=== PATIENT | female | born 1960 | race Caucasian/White ===

== ENCOUNTER 2020-08-15 09:27 | Day surgery (SDC) | payer OTHER ==
[~2020-08-15] VITALS: Ht 165.1 cm; Wt 73.2 kg
[~2020-08-15 09:27] MED LIST: ALBU90OI; ATEN25 PO; ATOR40TA PO; CYCL10 PO; ESTRADIOL0.5 MG PO; HYDCHL25 PO; LOPE2C PO; MELO7.5 PO; MOTION RELIEF25 MG PO; OMEP20ER PO; POTA10T PO
== END 2020-08-15 12:12 | disposition home or self-care (01) ==
LOC: ORSCSDS 09:27
PROVIDERS: Student in an Organized Health Care Education/Training Program
PROC: 0DB58ZX Excision of Esophagus, Via Natural or Artificial Opening Endoscopic, Diagnostic (ICD-10-PCS; principal; 2020-08-15 10:45)
DX: K22.70 Barrett's esophagus without dysplasia (principal); K44.9 Diaphragmatic hernia without obstruction or gangrene; I10 Essential (primary) hypertension; E78.5 Hyperlipidemia, unspecified; F41.9 Anxiety disorder, unspecified; J44.9 Chronic obstructive pulmonary disease, unspecified; Z87.891 Personal history of nicotine dependence
CPT/HCPCS: 88305; J2704; J7120

== ENCOUNTER → 2020-10-13 | Outpatient (CLI) | payer OTHER | LOC: LAB SHORT 19:30 → LAB 19:30 | PROVIDERS: Family Medicine | DX: Z79.899 Other long term (current) drug therapy (principal); Z88.8 Allergy status to other drugs, medicaments and biological substances | CPT/HCPCS: G0480 ==

== ENCOUNTER 2021-04-14 15:05 | Inpatient (IN) | payer OTHER ==
[~2021-04-14] VITALS: Ht 165.1 cm; Wt 72.6 kg
[~2021-04-14 15:05] MED LIST changes: -ALBU90OI; +PROAIR RESPICL90 MCG INH
[2021-04-14 15:44] LABS: BASOPHILS ABSOLUTE AUTO 0.05 K/mm3 (0.00-0.23); BASOPHILS PERCENT AUTO 0 % (0-2); EOSINOPHILS ABSOLUTE AUTO 0.12 K/mm3 (0.00-0.68); EOSINOPHILS PERCENT AUTO 1 % (0-6); Hematocrit 41.3 % (33.0-51.0); Hemoglobin 13.7 g/dL (11.5-16.0); IMMATURE GRAN ABSOLUTE AUTO 0.07 K/mm3 (0.00-0.10); IMMATURE GRAN PERCENT AUTO 0 % (0-1); LYMPHOCYTES ABSOLUTE AUTO 2.34 K/mm3 (0.84-5.20); LYMPHOCYTES PERCENT AUTO 14 % (21-46); MONOCYTES PERCENT AUTO 5 % (4-13); Mean Corpuscular HGB 29.4 pg (26.0-34.0); Mean Corpuscular HGB Conc 33.2 g/dL (31.5-36.5); Mean Corpuscular Volume 89 fL (80-100); Mean Platelet Volume 9.4 fL (9.1-12.4); NEUTROPHILS ABSOLUTE AUTO 13.02 K/mm3 (1.96-9.15); NEUTROPHILS PERCENT AUTO 79 % (41-73); Platelet Count 277 K/mm3 (150-400); RDW Coefficient Variation 12.4 % (11.7-14.2); RDW Standard Deviation 40.3 fL (35.1-46.3); Red Blood Cell Count 4.66 M/mm3 (3.80-5.20)
[2021-04-14 16:02] LABS: Alanine Aminotransfer (ALT/SGP 22 U/L (12-78); Albumin, Blood 4.2 g/dL (3.4-5.0); Albumin/Globulin Ratio 1.2 (0.8-1.8); Alk Phos 67 U/L (50-136); Anion Gap 11 mmol/L (6-16); Aspartate Aminotrans (AST/SGOT 20 U/L (12-37); Bilirubin, Total 0.6 mg/dL (0.1-1.0); Blood Urea Nitrogen 16 mg/dL (8-24); Bun/Creatinine Ratio 29.5 (12.0-20.0); CO2, Blood 27 mmol/L (21-32); Chloride, Blood 102 mmol/L (98-108); Creatinine, Blood 0.54 mg/dL (0.40-1.00); Globulin, Blood 3.4 g/dL (2.2-4.0); Glomerular Filtration Rate >60 (60-); Glucose, Blood 100 mg/dL (70-99); Potassium, Blood 3.1 mmol/L (3.5-5.5); Sodium, Blood 140 mmol/L (136-145); Total Protein, Blood 7.6 g/dL (6.4-8.2)
[2021-04-14] MEDS ORDERED: PANT20 PO (16:05)
[2021-04-14] MEDS ORDERED: HYDROCODONE-AC1 EA10 PO (16:14)
[2021-04-14] MEDS ORDERED: LYRICA PO (16:15)
[2021-04-14] MEDS ORDERED: FLOVENT HFA12 GM INH (16:15)
[2021-04-14] MEDS ORDERED: TIZA4 PO (16:16)
[2021-04-14 17:57] LABS: Source, Urine Clean Catch
[2021-04-14 17:59] LABS: Bilirubin, Urine Neg (Neg); Blood, Urine Neg (Neg); Glucose Qualitative, Urine Neg (Neg); Ketones, Urine 2+ (Neg); Leukocyte Esterase, Urine Neg (Neg); Nitrite, Urine Neg (Neg); Protein, Urine Neg (Neg); Specific Gravity, Urine 1.005 (1.003-1.022); Urobilinogen, Urine NORM (Normal)
[2021-04-14 18:10] LABS: Appearance, Urine Clear (Clear); Color, Urine Pale Yellow (P-Yellow)
--- NOTE | 2021-04-15 04:13 | NUR ---
Pt is alert and oriented x4. ambulatory with standby assist to the restroom. skin intact. pt is complaining of abdominal pain 12/31. Dilaudid q4 did not work. Messaged physician about pain. new order for fentanyl 25-50 mg q4 prn and changed the dilaudid to q2 prn. patient tolerated fentanyl well and states "it is working better than the other medications." pt is now resting on bed in lowest position. call light within reach. pt complains of burning on IV site when potassium IV is running. placed iced pack on site and patient state it helps. no tele ordered when RN called for tele order for running potassium IV.
[2021-04-15 05:00] LABS: BASOPHILS ABSOLUTE AUTO 0.03 K/mm3 (0.00-0.23); BASOPHILS PERCENT AUTO 0 % (0-2); EOSINOPHILS PERCENT AUTO 0 % (0-6); Hematocrit 36.4 % (33.0-51.0); Hemoglobin 12.2 g/dL (11.5-16.0); IMMATURE GRAN ABSOLUTE AUTO 0.04 K/mm3 (0.00-0.10); IMMATURE GRAN PERCENT AUTO 0 % (0-1); LYMPHOCYTES ABSOLUTE AUTO 0.79 K/mm3 (0.84-5.20); LYMPHOCYTES PERCENT AUTO 7 % (21-46); MONOCYTES ABSOLUTE AUTO 0.38 K/mm3 (0.16-1.47); MONOCYTES PERCENT AUTO 3 % (4-13); Mean Corpuscular HGB 29.7 pg (26.0-34.0); Mean Corpuscular HGB Conc 33.5 g/dL (31.5-36.5); Mean Corpuscular Volume 89 fL (80-100); Mean Platelet Volume 9.4 fL (9.1-12.4); NEUTROPHILS ABSOLUTE AUTO 10.69 K/mm3 (1.96-9.15); NEUTROPHILS PERCENT AUTO 90 % (41-73); Platelet Count 221 K/mm3 (150-400); RDW Coefficient Variation 12.7 % (11.7-14.2); RDW Standard Deviation 41.7 fL (35.1-46.3); Red Blood Cell Count 4.11 M/mm3 (3.80-5.20); White Blood Cell Count 11.93 K/mm3 (4.00-11.30)
[2021-04-15 05:19] LABS: International Normalized Ratio 1.07; Prothrombin Time Results 11.2 Sec (9.7-11.5)
[2021-04-15 05:20] LABS: Alanine Aminotransfer (ALT/SGP 17 U/L (12-78); Albumin, Blood 3.6 g/dL (3.4-5.0); Albumin/Globulin Ratio 1.2 (0.8-1.8); Alk Phos 49 U/L (50-136); Anion Gap 9 mmol/L (6-16); Aspartate Aminotrans (AST/SGOT 15 U/L (12-37); Blood Urea Nitrogen 11 mg/dL (8-24); Bun/Creatinine Ratio 17.2 (12.0-20.0); CO2, Blood 26 mmol/L (21-32); Calcium, Blood 8.4 mg/dL (8.5-10.1); Chloride, Blood 105 mmol/L (98-108); Creatinine, Blood 0.64 mg/dL (0.40-1.00); Glomerular Filtration Rate >60 (60-); Glucose, Blood 141 mg/dL (70-99); Magnesium, Blood 1.3 mg/dL (1.6-2.4); Potassium, Blood 3.2 mmol/L (3.5-5.5); Sodium, Blood 140 mmol/L (136-145); Total Protein, Blood 6.6 g/dL (6.4-8.2)
--- NOTE | 2021-04-15 08:00 | NUR ---
pt laying in bed in distress, complaining of abd pain, she has a k pad in place, reports her right leg is also hurting from her back, 1mg dilaudid given with small amount of relief, lungs are clear on r/a, resp even and unlabored, hrr, no edema noted, ppp+2, cap refill <3sec, vs stable, afebrile, iv to rac, site is clear and patent, btx4, abd flat soft but very tender, voids without diff, skin c/w/d, karen, cecy, had a small bm this am per pt. call light in reach.
--- NOTE | 2021-04-15 17:22 | NUR ---
IV TO RAC IS LEAKING WITH FLUSH, THIS WAS REMOVED INTACT, NEW 20G PLACED TO RFA, GOOD BLOOD RETURN, 20 PLACED TO LFA PLACED THIS AM BY VP DIRECTOR OF FINANCE. INFUSING LR AT 150 PER ORDERS, PT JUST RECIEVED TORADAL FOR PAIN, CALL LIGHT IN REACH.
--- NOTE | 2021-04-15 18:24 | NUR ---
Pt doing better this afternoon. toridal seems to be helping. no further changes this shift. call light in reach.
[2021-04-16 04:44] LABS: BASOPHILS ABSOLUTE AUTO 0.02 K/mm3 (0.00-0.23); BASOPHILS PERCENT AUTO 0 % (0-2); EOSINOPHILS ABSOLUTE AUTO 0.06 K/mm3 (0.00-0.68); EOSINOPHILS PERCENT AUTO 1 % (0-6); Hematocrit 33.3 % (33.0-51.0); Hemoglobin 10.5 g/dL (11.5-16.0); IMMATURE GRAN ABSOLUTE AUTO 0.03 K/mm3 (0.00-0.10); IMMATURE GRAN PERCENT AUTO 0 % (0-1); LYMPHOCYTES ABSOLUTE AUTO 1.29 K/mm3 (0.84-5.20); LYMPHOCYTES PERCENT AUTO 16 % (21-46); MONOCYTES ABSOLUTE AUTO 0.26 K/mm3 (0.16-1.47); MONOCYTES PERCENT AUTO 3 % (4-13); Mean Corpuscular HGB 29.5 pg (26.0-34.0); Mean Corpuscular HGB Conc 31.5 g/dL (31.5-36.5); Mean Platelet Volume 9.6 fL (9.1-12.4); NEUTROPHILS ABSOLUTE AUTO 6.23 K/mm3 (1.96-9.15); NEUTROPHILS PERCENT AUTO 79 % (41-73); Platelet Count 183 K/mm3 (150-400); RDW Coefficient Variation 12.8 % (11.7-14.2); RDW Standard Deviation 44.2 fL (35.1-46.3); Red Blood Cell Count 3.56 M/mm3 (3.80-5.20); White Blood Cell Count 7.89 K/mm3 (4.00-11.30)
[2021-04-16 04:48] LABS: Mean Corpuscular Volume 94 fL (80-100)
[2021-04-16 05:22] LABS: Alanine Aminotransfer (ALT/SGP 15 U/L (12-78); Alk Phos 51 U/L (50-136); Anion Gap 10 mmol/L (6-16); Aspartate Aminotrans (AST/SGOT 14 U/L (12-37); Bilirubin, Total 1.2 mg/dL (0.1-1.0); Blood Urea Nitrogen 13 mg/dL (8-24); Bun/Creatinine Ratio 24.1 (12.0-20.0); CO2, Blood 24 mmol/L (21-32); Calcium, Blood 8.1 mg/dL (8.5-10.1); Chloride, Blood 108 mmol/L (98-108); Creatinine, Blood 0.54 mg/dL (0.40-1.00); Glomerular Filtration Rate >60 (60-); Glucose, Blood 92 mg/dL (70-99); Magnesium, Blood 1.9 mg/dL (1.6-2.4); Phosphorus, Blood 2.1 mg/dL (2.5-4.9); Potassium, Blood 3.1 mmol/L (3.5-5.5); Sodium, Blood 142 mmol/L (136-145)
--- NOTE | 2021-04-16 19:09 | NUR ---
PATIENT IS ALERT AND ORIENTED AND COOPERATIVE WITH CARE. C/O ABDOMINAL PAIN, MANAGED PER EMAR. ABDOMEN IS TENDER TO TOUCH AND SOFT. PATIENT STATES HER ABDOMEN IS MORE DISTENDED THAN NORMAL. PATIENT HAS BEEN NPO. GENERAL SURGERY DID NOT SEE THE PATIENT THIS SHIFT. PATIENT RESTED IN BED ON HER SIDE MOST OF THE SHIFT. WILL CONTINUE TO MONITOR
--- NOTE | 2021-04-17 02:13 | NUR ---
Patient stated feeling much better today. Still having mild abdominal pain manage with medication per eMar. Patient is on 2 L N/C Humidified. She ambulate to the restroom. Infusion/Peripheral IV continue @ 100ml/HR. No new complaint. We continue with monitoring patient.
--- NOTE | 2021-04-17 13:34 | NUR ---
Initial Assessment with [facility] Community Traffic Law Attorney 1. Who did you speak with? Spoke with patient 2. What is the patient's prior level of functions? Patient lives independently in a home with her boyfriend Denis Parham. Residence is single story with four to five stairs at entrance. Patient able to perform ADLs without assistance. Her home has running water, heat, electricity, and sewage. 3. What is the patient's current living situation? Patient lives with boyfriend. 4. Is the patient and/or family able to provide transportation to and from doctor's appointments and pickle sorter prescriptions? Patient able to drive and has transportation. 5. Does patient still drive? Yes 6. POA/PCP/NOK: NOK: Nico Diez daughter [phone]/[facility] PCP Dr Daphney Wilson 7. ANTICIPATED DISCHARGE NEEDS/GOALS: TBD -Patient able to manage medication -Preferred Pharmacy [facility] 8. List barriers to discharge: No barriers on this date 9. Discharge Plan: Home and follow up with [place] PCP Dr. Wilson 10. PCP Follow up appointment: Will be scheduled within seven calendar days of discharge. 11. OTHER COMMENTS: Patient is not a
--- NOTE | 2021-04-17 17:49 | NUR ---
SHIFT SUMMARY PT HAS BEEN UPBEAT & PLEASANT TODAY. UP IND IN ROOM & MOVING AROUND WELL. TOLERATING FEW ICE CHIPS WELL. ONLY BECAME NAUSEATED x 1 THIS AM. PAIN HAS CAME & GONE; REPORTS RELIEF FROM PAIN MEDS.
[2021-04-18 04:47] LABS: BASOPHILS ABSOLUTE AUTO 0.03 K/mm3 (0.00-0.23); BASOPHILS PERCENT AUTO 1 % (0-2); EOSINOPHILS ABSOLUTE AUTO 0.09 K/mm3 (0.00-0.68); EOSINOPHILS PERCENT AUTO 2 % (0-6); Hematocrit 32.2 % (33.0-51.0); Hemoglobin 10.3 g/dL (11.5-16.0); IMMATURE GRAN ABSOLUTE AUTO 0.01 K/mm3 (0.00-0.10); IMMATURE GRAN PERCENT AUTO 0 % (0-1); LYMPHOCYTES ABSOLUTE AUTO 1.53 K/mm3 (0.84-5.20); LYMPHOCYTES PERCENT AUTO 29 % (21-46); MONOCYTES ABSOLUTE AUTO 0.37 K/mm3 (0.16-1.47); MONOCYTES PERCENT AUTO 7 % (4-13); Mean Corpuscular HGB 29.5 pg (26.0-34.0); Mean Corpuscular Volume 92 fL (80-100); Mean Platelet Volume 9.7 fL (9.1-12.4); NEUTROPHILS ABSOLUTE AUTO 3.25 K/mm3 (1.96-9.15); NEUTROPHILS PERCENT AUTO 62 % (41-73); Platelet Count 223 K/mm3 (150-400); RDW Coefficient Variation 12.6 % (11.7-14.2); RDW Standard Deviation 42.3 fL (35.1-46.3); Red Blood Cell Count 3.49 M/mm3 (3.80-5.20); White Blood Cell Count 5.28 K/mm3 (4.00-11.30)
[2021-04-18 05:13] LABS: Anion Gap 10 mmol/L (6-16); Blood Urea Nitrogen 7 mg/dL (8-24); Bun/Creatinine Ratio 14.5 (12.0-20.0); CO2, Blood 22 mmol/L (21-32); Calcium, Blood 8.6 mg/dL (8.5-10.1); Chloride, Blood 111 mmol/L (98-108); Creatinine, Blood 0.48 mg/dL (0.40-1.00); Glomerular Filtration Rate >60 (60-); Glucose, Blood 99 mg/dL (70-99); Potassium, Blood 3.1 mmol/L (3.5-5.5); Sodium, Blood 143 mmol/L (136-145)
--- NOTE | 2021-04-18 18:58 | NUR ---
PATIENT IS ALERT AND ORIENTED AND COOPERATIVE WITH CARE. C/O BACK AND ABDOMINAL PAIN MEDICATED PER EMAR. HAD 2 BM'S TODAY ,PEBBLE, SMALL AND BROWN. DR. NOVOA NOTIFIED OF PATIENT'S BRADYCARDIA. LIDOCAINE PATCH ON LEFT BACK. PATIENT HAS BEEN TOLERATING ICE CHIPS AND HAD A GLASS OF CHICKEN BROTH THIS AFTERNOON. ON RA. WILL CONTINUE TO MONITOR
--- NOTE | 2021-04-19 06:32 | NUR ---
SHIFT SUMMARY: A&OX4, ACTIVE BOWEL TONES X4 QUADRANTS, ABDOMEN IS DISTENTEDED SOFT, RLQ TENDER TO PALPATION. PATIENT ENDORSES BLOATING, GAS, PAIN, AND NAUSEA. TREATED PER EMAR. WCTM.
--- NOTE | 2021-04-19 18:29 | NUR ---
SHIFT SUMMARY PATIENT RESTING IN BED. A&OX4. ABDOMEN DISTENDED WITH LLQ TENDERNESS. PATIENT INDEPENDENT IN ROOM AND TOOK A SHOWER TODAY. CONTINUOUS PULSE OX PRESENT SATING MID 90S. EPISODES OF BURT LOW 50S OCCASIONALLY DOWN TO 48. MEDICATED X1 FOR HYPERTENSION. ADVANCED TO CLEAR LIQUID DIET. C/O BLOATING, GAS, NAUSEA, AND PAIN. MEDICATED PER MAY. BED IN LOW POSITION WITH CALL LIGHT IN REACH. WILL CONTINUE TO MONITOR.
--- NOTE | 2021-04-20 04:52 | NUR ---
SHIFT SUMMARY: A&OX4, PATIENT COMPLAINS OF ONGOING DIFFUSE ABD PAIN, INCREASED BLOATING AND GAS. PATIENT ABD IS DISTENDED AND SOFT. TENDER TO PALPATION ON LLQ AND RUQ. PAIN AND NAUSEA TREATED PER EMAR. PATIENT RESTLESS AND REQUESTED SLEEP AID, MD CONTACTED AND MELATONIN ORDER RECEIVED.
[2021-04-20 04:56] LABS: BASOPHILS ABSOLUTE AUTO 0.05 K/mm3 (0.00-0.23); BASOPHILS PERCENT AUTO 1 % (0-2); EOSINOPHILS PERCENT AUTO 4 % (0-6); Hematocrit 31.3 % (33.0-51.0); Hemoglobin 10.4 g/dL (11.5-16.0); IMMATURE GRAN ABSOLUTE AUTO 0.02 K/mm3 (0.00-0.10); IMMATURE GRAN PERCENT AUTO 0 % (0-1); LYMPHOCYTES ABSOLUTE AUTO 1.15 K/mm3 (0.84-5.20); LYMPHOCYTES PERCENT AUTO 22 % (21-46); MONOCYTES ABSOLUTE AUTO 0.45 K/mm3 (0.16-1.47); MONOCYTES PERCENT AUTO 8 % (4-13); Mean Corpuscular HGB 29.5 pg (26.0-34.0); Mean Corpuscular HGB Conc 33.2 g/dL (31.5-36.5); Mean Corpuscular Volume 89 fL (80-100); Mean Platelet Volume 9.2 fL (9.1-12.4); NEUTROPHILS ABSOLUTE AUTO 3.48 K/mm3 (1.96-9.15); NEUTROPHILS PERCENT AUTO 65 % (41-73); Platelet Count 228 K/mm3 (150-400); RDW Coefficient Variation 12.4 % (11.7-14.2); RDW Standard Deviation 40.1 fL (35.1-46.3); Red Blood Cell Count 3.53 M/mm3 (3.80-5.20); White Blood Cell Count 5.35 K/mm3 (4.00-11.30)
[2021-04-20 05:43] LABS: Anion Gap 9 mmol/L (6-16); Blood Urea Nitrogen 2 mg/dL (8-24); Bun/Creatinine Ratio 4.1 (12.0-20.0); CO2, Blood 24 mmol/L (21-32); Calcium, Blood 8.2 mg/dL (8.5-10.1); Chloride, Blood 110 mmol/L (98-108); Creatinine, Blood 0.49 mg/dL (0.40-1.00); Glomerular Filtration Rate >60 (60-); Glucose, Blood 109 mg/dL (70-99); Potassium, Blood 2.8 mmol/L (3.5-5.5); Sodium, Blood 143 mmol/L (136-145)
--- NOTE | 2021-04-20 17:33 | NUR ---
SHIFT SUMMARY PT RESTING COMFORTABLY IN BED. SHE WAS ABLE TO GET UP AND WALK THE HALLS TODAY TO HELP DEAL WITH SOME OF THE BLOATING SHE HAS BEEN HAVING SINCE BEGINNING TO EAT SOLID FOOD. SHE WENT FOR A CT SCAN TODAY BUT RESULTS AND SUBSEQUENT TREATMENT HAVE NOT BEEN DECIDED YET. SHE HAS BEEN MEDICATED FOR PAIN SEVERAL TIMES SINCE THIS MORNING IN BOTH HER BACK AND HER LOWER ABDOMEN. WILL CONTINEU TO MONITOR
--- NOTE | 2021-04-21 04:00 | NUR ---
SHIFT SUAMMRY: A&OX4, PATIENT ENDORSES ON GOING PAIN TO ABD, TREATED PER EMAR. NEW COMPLAINT OF ORAL DISCOMFORT. ASSESSMENT REVEALED ERYTHEMA TO ROOF OF MOUTH AND THROAT. PATIENT STATED IT STARTED AFTER SHE FULLY INHALED ASMANEX, CONSULTED AND NYSTATIN SWISH ORDER OBTAINED. WCRADHA.
[2021-04-21 08:57] LABS: Albumin, Blood 2.8 g/dL (3.4-5.0); Anion Gap 7 mmol/L (6-16); Blood Urea Nitrogen 1 mg/dL (8-24); Bun/Creatinine Ratio 2.1 (12.0-20.0); CO2, Blood 29 mmol/L (21-32); Calcium, Blood 7.9 mg/dL (8.5-10.1); Chloride, Blood 110 mmol/L (98-108); Creatinine, Blood 0.48 mg/dL (0.40-1.00); Glomerular Filtration Rate >60 (60-); Glucose, Blood 114 mg/dL (70-99); Magnesium, Blood 1.3 mg/dL (1.6-2.4); Potassium, Blood 2.6 mmol/L (3.5-5.5); Sodium, Blood 146 mmol/L (136-145)
--- NOTE | 2021-04-21 18:25 | NUR ---
SUMMARY- PT A/O X4, INDEPENDANT IN ROOM TO BATHROOM. CONT WITH ABD CRAMPING, MEDICATED X2 TODAY WITH DILAUDID, EFFECTIVE RELEIF. ZOFRAN X1 FOR NAUSEA. TOLERATING CLEAR LIQ DIET. POTASSIUM AND MAGNESIUM REPLACEMENT. PT IN BED MOST OF THE DAY RECIEVING IV REPLACEMENT. WILL AMBULATE AFTER INFUSIONS. CALLED IN CONSULT TO DR PERERA, CONFIRMING PERF REPAORED BEFORE PT DISCHARGED.
--- NOTE | 2021-04-22 04:12 | NUR ---
CURING PRESS OPERATOR SUMMARY ABD PAIN CONTINUES, RECEIVING DILAUDID IV. MED EFFECTIVE. ANTIBIOTICS INFUSING ORDERED. SEE MAR FOR DETAILS OF ALL MEDS. TOLERATING CL LIQUIDS. VOICED SOME ANXIETY RE POSSIBLE DC LATER TODAY AFTER DR FRIAS REVIEWS CT, ETC. UP AD CAT. HAS BEEN RESTING QUIETLY WITH FEW INTERRUPTIONS SINCE HS. CALL LIGHT IN REACH.
[2021-04-22 05:07] LABS: BASOPHILS ABSOLUTE AUTO 0.04 K/mm3 (0.00-0.23); BASOPHILS PERCENT AUTO 1 % (0-2); EOSINOPHILS ABSOLUTE AUTO 0.16 K/mm3 (0.00-0.68); EOSINOPHILS PERCENT AUTO 3 % (0-6); Hematocrit 31.7 % (33.0-51.0); Hemoglobin 10.3 g/dL (11.5-16.0); IMMATURE GRAN ABSOLUTE AUTO 0.02 K/mm3 (0.00-0.10); IMMATURE GRAN PERCENT AUTO 0 % (0-1); LYMPHOCYTES ABSOLUTE AUTO 1.27 K/mm3 (0.84-5.20); LYMPHOCYTES PERCENT AUTO 23 % (21-46); MONOCYTES ABSOLUTE AUTO 0.47 K/mm3 (0.16-1.47); MONOCYTES PERCENT AUTO 8 % (4-13); Mean Corpuscular HGB 29.1 pg (26.0-34.0); Mean Corpuscular HGB Conc 32.5 g/dL (31.5-36.5); Mean Corpuscular Volume 90 fL (80-100); Mean Platelet Volume 9.3 fL (9.1-12.4); NEUTROPHILS ABSOLUTE AUTO 3.69 K/mm3 (1.96-9.15); NEUTROPHILS PERCENT AUTO 65 % (41-73); Platelet Count 277 K/mm3 (150-400); RDW Coefficient Variation 12.8 % (11.7-14.2); RDW Standard Deviation 41.3 fL (35.1-46.3); Red Blood Cell Count 3.54 M/mm3 (3.80-5.20); White Blood Cell Count 5.65 K/mm3 (4.00-11.30)
[2021-04-22 05:36] LABS: Anion Gap 6 mmol/L (6-16); Blood Urea Nitrogen 2 mg/dL (8-24); Bun/Creatinine Ratio 4.1 (12.0-20.0); CO2, Blood 31 mmol/L (21-32); Calcium, Blood 8.1 mg/dL (8.5-10.1); Chloride, Blood 107 mmol/L (98-108); Creatinine, Blood 0.49 mg/dL (0.40-1.00); Glomerular Filtration Rate >60 (60-); Glucose, Blood 105 mg/dL (70-99); Potassium, Blood 2.5 mmol/L (3.5-5.5); Sodium, Blood 144 mmol/L (136-145)
--- NOTE | 2021-04-22 17:23 | NUR ---
SUMMARY- PT A/O X4, INDEPENDANT IN ROOM. HAD SHOWER THIS AM, AMBULATED IN THE MARIA DOWN TO Scan X3 TODAY. STATES SHE IS PASSING GAS AND HAD A SMALL SEMI FORMED BM THIS AM. TOLERATING CLEARS. INCREASED TO A FULL DIET FOR DINNER. PAIN PRIMARILY FROM CHRONIC SCIATICA IN R HIP. USUALLY 8/10, RELEIVED WITH HEAT PAD AND DILAUDID. ABD PAIN HAS BEEN MILD CRAMPING 3-4/10. CHANGED OVER TO [facility] WHICH SHE USES AT HOME. WORKING ON POTASSIUM REPLACEMENT, WILL RECHECK LABS IN THE AM. DR JONES CLEARED PT TO BE OK TO GO HOME AND F/U WITH HIM IN [address] NOVOA KEPT ANOTHER NIGHT RELATED TO LOW KCL AND CONT BLOATING PAIN IN ABD. WILL REPORT TO MELANIE BROWN.
[2021-04-22 17:25] LABS: Magnesium, Blood 1.7 mg/dL (1.6-2.4); Potassium, Blood 2.8 mmol/L (3.5-5.5)
--- NOTE | 2021-04-23 03:21 | NUR ---
ARTISTS' BOOKING REPRESENTATIVE SUMMARY PT HAD BM(S) TODAY. VOICED FEELING BETTER THAN NOTED 24 HR PREVIOUS. UP TO BATHROOM AD CAT WITHOUT NOTED DIFFICULTIES. IV ANTIBIOTICS CONTINUE TO INFUSE ORDEREED. PO ANALGESIC ADMIN X 1. TOLERATING FULL LIQUID DIET WELL. HAS BEEN RESTING QUIETLY WITH FEW INTERRUPTIONS SINCE HS. SEE MAR FOR DETAILS RE MEDS GIVEN. CALL LIGHT IN REACH.
[2021-04-23 05:14] LABS: BASOPHILS ABSOLUTE AUTO 0.03 K/mm3 (0.00-0.23); BASOPHILS PERCENT AUTO 1 % (0-2); EOSINOPHILS ABSOLUTE AUTO 0.15 K/mm3 (0.00-0.68); EOSINOPHILS PERCENT AUTO 3 % (0-6); Hematocrit 35.3 % (33.0-51.0); Hemoglobin 11.4 g/dL (11.5-16.0); IMMATURE GRAN ABSOLUTE AUTO 0.01 K/mm3 (0.00-0.10); IMMATURE GRAN PERCENT AUTO 0 % (0-1); LYMPHOCYTES ABSOLUTE AUTO 1.37 K/mm3 (0.84-5.20); LYMPHOCYTES PERCENT AUTO 27 % (21-46); MONOCYTES ABSOLUTE AUTO 0.42 K/mm3 (0.16-1.47); MONOCYTES PERCENT AUTO 8 % (4-13); Mean Corpuscular HGB Conc 32.3 g/dL (31.5-36.5); Mean Corpuscular Volume 90 fL (80-100); Mean Platelet Volume 9.2 fL (9.1-12.4); NEUTROPHILS ABSOLUTE AUTO 3.09 K/mm3 (1.96-9.15); NEUTROPHILS PERCENT AUTO 61 % (41-73); Platelet Count 304 K/mm3 (150-400); RDW Coefficient Variation 12.6 % (11.7-14.2); RDW Standard Deviation 41.9 fL (35.1-46.3); Red Blood Cell Count 3.93 M/mm3 (3.80-5.20); White Blood Cell Count 5.07 K/mm3 (4.00-11.30)
[2021-04-23 05:39] LABS: Anion Gap 8 mmol/L (6-16); Blood Urea Nitrogen 3 mg/dL (8-24); Bun/Creatinine Ratio 5.5 (12.0-20.0); CO2, Blood 34 mmol/L (21-32); Chloride, Blood 102 mmol/L (98-108); Creatinine, Blood 0.55 mg/dL (0.40-1.00); Glomerular Filtration Rate >60 (60-); Glucose, Blood 111 mg/dL (70-99); Potassium, Blood 2.8 mmol/L (3.5-5.5); Sodium, Blood 144 mmol/L (136-145)
[2021-04-23] MEDS ORDERED: NYSTATIN100000 UN1 PO (12:04)
[2021-04-23] MEDS ORDERED: CIPR500 PO (12:05)
[2021-04-23] MEDS ORDERED: METR500 PO (12:05)
--- NOTE | 2021-04-23 14:13 | NUR ---
DISCHARGE PATIENT WAS DISCHARGED TO HOME TRANSPORTED BY . PATIENTS IV WAS REMOVED WITHOUT CONCERN, PATIENT EDUCATION INCLUDED NEW MEDICATIONS, FOLLOW UP ORDERS, HARD SCRIPT TO DROP AT PHARMACY. PATIENT UNDERSTANDS ALL INFORMATION AND SIGNED DISCHARGE PAPERWORK. SHE WAS BROUGHT OUT BY WHEEL CHAIR AT 1405.
--- NOTE | 2021-04-23 14:21 | NUR ---
Per Dr. De La Torre discharge appropriate on: 04/23/21. Patient does not oppose discharge. Transportation to residence provided by family. DME: none needed. Patient reminded to contact her PCP if any questions regarding medication management/social service needs or go to urgent care if condition worsens. [facility] will contact patient to schedule hospital PCP follow up Dr. Leonor Wilson. Patient has strong family support. No barriers to discharge at this time.
== END 2021-04-23 14:03 | disposition home or self-care (01) | DRG 872 ==
LOC: ER 15:05 → MEDS 19:44
PROVIDERS: Emergency Medicine; Family Medicine; Hospitalist; Internal Medicine; Nurse Practitioner Acute Care; ADMIT Internal Medicine
DX: A41.9 Sepsis, unspecified organism (principal); E87.2 Acidosis; K57.20 Diverticulitis of large intestine with perforation and abscess without bleeding; Z20.822 Contact with and (suspected) exposure to COVID-19; F32.A Depression, unspecified; M51.36 Other intervertebral disc degeneration, lumbar region; E11.9 Type 2 diabetes mellitus without complications; E78.5 Hyperlipidemia, unspecified; I10 Essential (primary) hypertension; K22.70 Barrett's esophagus without dysplasia; J45.909 Unspecified asthma, uncomplicated; M54.30 Sciatica, unspecified side; K58.9 Irritable bowel syndrome, unspecified; E87.6 Hypokalemia; D64.9 Anemia, unspecified; Z87.891 Personal history of nicotine dependence; Z88.8 Allergy status to other drugs, medicaments and biological substances; Z79.899 Other long term (current) drug therapy
CPT/HCPCS: 36415; 74177; 80048; 80053; 80069; 81003; 82947; 83605; 83690; 83735; 84100; 84132; 84484; 85025; 85610; 85651; 86140; 87040; 93005; 93010; 94640; 94760; 94762; 96365; 96367; 96375; 96376; 99285-25; A9270; C9113; J0360; J1170; J1650; J1885; J2270; J2405; J2543; J2550; J3010; J3475; J3480; J7030; J7042; J7050; J7120; Q9967

== ENCOUNTER → 2021-06-01 | Outpatient (CLI) | payer OTHER ==
[~2021-06-01] MED LIST changes: +CIPR500 PO; +FLOVENT HFA12 GM INH; +HYDROCODONE-AC1 EA10 PO; +LYRICA PO; +METR500 PO; +NYSTATIN100000 UN1 PO; +PANT20 PO; +TIZA4 PO
== END | disposition home or self-care (01) ==
LOC: LAB SHORT 09:10 → LAB 09:10
PROVIDERS: Family Medicine
DX: Z51.81 Encounter for therapeutic drug level monitoring (principal); Z79.899 Other long term (current) drug therapy
CPT/HCPCS: G0480

== ENCOUNTER → 2021-08-27 | Outpatient (CLI) | payer OTHER | END | disposition home or self-care (01) | LOC: LAB 12:03 → LAB SHORT 12:03 | PROVIDERS: Family Medicine | DX: Z51.81 Encounter for therapeutic drug level monitoring (principal); Z79.899 Other long term (current) drug therapy | CPT/HCPCS: G0480 ==

== ENCOUNTER → 2021-11-27 | Outpatient (CLI) | payer OTHER | END | disposition home or self-care (01) | LOC: LAB SHORT 11:53 → LAB 11:53 | PROVIDERS: Family Medicine | DX: Z51.81 Encounter for therapeutic drug level monitoring (principal); Z79.899 Other long term (current) drug therapy | CPT/HCPCS: G0480 ==

== ENCOUNTER 2022-02-19 07:38 | Day surgery (SDC) | payer OTHER ==
[~2022-02-19] VITALS: Ht 165.1 cm; Wt 68.6 kg
[2022-02-19] MEDS ORDERED: OMEP20ER (07:53)
--- NOTE | 2022-02-19 09:59 | NUR ---
02/19/22 0959 GERRY PRAKASH PT WAS GIVEN ZOFRAN 4MG IV PER DR ORDERS FOR VOMITTING DURING COLONOSCOPY; SUCTIONED. PT O2 DROPPED 88% EVEN AFTER HEADTILT CHIN LIFT AND INCREASING O2 TO 5L NC; PUT POM MASK ON O2 INCREASED TO 10L AND O2 SATS CAME UP TO 96%. PT VOMITTED AT END OF PROCEDURE SCOPE WAS COMING OUT AND SEDATION HAD BEEN ORDERED TO STOP. SUCTIONED PT AND STIMULATEDED THE PT TO OPEN EYES. SHE FOLLOWED COMMANDS/ SAT PT UP AND INSTRUCTED HER TO COUGH AND CLEAR HER OWN AIRWAY. LISTEDNED TO LUNGS WHICH WERE CLEAR. PT C/ SORE THROAT FROM ACID. ALSO C/O LOWER ABOMINAL CRAMPING. DR MAJANO NOTIFIED AND DISCUSSED IT WITH PT BEING NORMAL FROM THE PROCEDURE AND GAS. PT TOLERATED COLD WATER AND CHEST WAS CLEAR UPON DC. REPROT GIVEN TO ACO RN WHO DC PT.
== END 2022-02-19 09:44 | disposition home or self-care (01) ==
LOC: ORSCSDS 07:38
PROVIDERS: Student in an Organized Health Care Education/Training Program
PROC: 0DBL8ZX Excision of Transverse Colon, Via Natural or Artificial Opening Endoscopic, Diagnostic (ICD-10-PCS; principal; 2022-02-19 09:00)
PROC: 0DBN8ZX Excision of Sigmoid Colon, Via Natural or Artificial Opening Endoscopic, Diagnostic (ICD-10-PCS; principal; 2022-02-19 09:00)
DX: R10.32 Left lower quadrant pain (principal); Z87.19 Personal history of other diseases of the digestive system; Z86.010 Personal history of colon polyps; D12.3 Benign neoplasm of transverse colon; K57.30 Diverticulosis of large intestine without perforation or abscess without bleeding; K64.8 Other hemorrhoids; K62.89 Other specified diseases of anus and rectum; Z87.891 Personal history of nicotine dependence; I10 Essential (primary) hypertension; K21.9 Gastro-esophageal reflux disease without esophagitis; Z79.899 Other long term (current) drug therapy
CPT/HCPCS: 88305; J2405; J2704; J7120

== ENCOUNTER → 2022-02-28 | Outpatient (CLI) | payer OTHER ==
[~2022-02-28] MED LIST changes: +OMEP20ER
== END ==
LOC: LAB 12:36 → LAB SHORT 12:36
PROVIDERS: Family Medicine
DX: Z79.899 Other long term (current) drug therapy (principal)
CPT/HCPCS: G0480

== ENCOUNTER → 2023-02-28 | Outpatient (CLI) | payer OTHER ==
[2023-03-04 22:31] LABS: 6-ACETYLMORPHINE, URN, QUANT <10 ng/mL; CODEINE, URN, QUANT <20 ng/mL; HYDROCODONE, URN, QUANT 795 ng/mL; HYDROMORPHONE, URN, QUANT 31 ng/mL; MORPHINE, URN, QUANT <20 ng/mL; NORHYDROCODONE, URN, QUANT 1526 ng/mL; NOROXYCODONE, URN, QUANT <20 ng/mL; NOROXYMORPHONE, URN, QUANT <20 ng/mL; OXYCODONE, URN, QUANT <20 ng/mL; OXYMORPHONE, URN, QUANT <20 ng/mL
== END ==
LOC: LAB 15:09 → LAB SHORT 15:09
PROVIDERS: Family Medicine
DX: Z51.81 Encounter for therapeutic drug level monitoring (principal); Z79.899 Other long term (current) drug therapy
CPT/HCPCS: G0480

== ENCOUNTER → 2023-11-25 | Outpatient (CLI) | payer OTHER ==
[2023-11-28 19:48] LABS: 6-ACETYLMORPHINE, URN, QUANT <10 ng/mL; CODEINE, URN, QUANT <20 ng/mL; HYDROCODONE, URN, QUANT <20 ng/mL; HYDROMORPHONE, URN, QUANT <20 ng/mL; MORPHINE, URN, QUANT <20 ng/mL; NORHYDROCODONE, URN, QUANT <20 ng/mL; NOROXYCODONE, URN, QUANT <20 ng/mL; NOROXYMORPHONE, URN, QUANT <20 ng/mL; OXYCODONE, URN, QUANT <20 ng/mL; OXYMORPHONE, URN, QUANT <20 ng/mL
== END ==
LOC: LAB SHORT 15:10 → LAB 15:10
PROVIDERS: Family Medicine
DX: Z51.81 Encounter for therapeutic drug level monitoring (principal); Z79.899 Other long term (current) drug therapy
CPT/HCPCS: G0480

== ENCOUNTER 2023-12-14 19:23 | Emergency (ER) | payer OTHER ==
[~2023-12-14] VITALS: Ht 165.1 cm; Wt 59.0 kg
[2023-12-14 19:33] VITALS: BP 152/100
[2023-12-14] MEDS ORDERED: HYDROmorphone HCl/Pf 1MG SYR IV ONE ×2 (20:30→21:35)
[2023-12-14] MEDS ORDERED: Dexamethasone Sod Phos 10 MG/ML 1ML VIAL IV ONE (20:35)
[2023-12-14] MEDS ORDERED: Methocarbamol 500 MG Tab PO ONE (20:35)
[2023-12-14] MEDS ORDERED: Ketorolac Tromethamine 15mg Vial IV ONE (21:35)
[2023-12-14] MEDS ORDERED: Ondansetron HCl 2 MG / ML 2ML Vial IV ONE (21:35)
[2023-12-14] MEDS ORDERED: Robaxin750 MG PO (21:48)
[2023-12-14] MEDS ORDERED: METPRE4DP PO (21:48)
[2023-12-14] MEDS ORDERED: RX Prepack 6 Tabs Oxycodone 5mg UD ONE (22:10)
[2023-12-14] MEDS ORDERED: Percocet 5-3251 EACH PO (22:11)
== END 2023-12-14 22:42 | disposition home or self-care (01) ==
LOC: ER 19:23
DX: M54.17 Radiculopathy, lumbosacral region (principal); G89.29 Other chronic pain; R20.0 Anesthesia of skin; I10 Essential (primary) hypertension; K21.9 Gastro-esophageal reflux disease without esophagitis; E78.5 Hyperlipidemia, unspecified; Z88.8 Allergy status to other drugs, medicaments and biological substances; Z79.899 Other long term (current) drug therapy; Z87.891 Personal history of nicotine dependence
CPT/HCPCS: 72100; 96374; 96375; 96376; 99283-25; A9270; J1100; J1170; J1885; J2405

== ENCOUNTER 2024-01-20 11:10 | Emergency (ER) | payer OTHER ==
[~2024-01-20] VITALS: Ht 165.1 cm; Wt 59.0 kg
[~2024-01-20 11:10] MED LIST changes: +METPRE4DP PO; +Percocet 5-3251 EACH PO; +Robaxin750 MG PO
[2024-01-20] MEDS ORDERED: Ketorolac Tromethamine 15mg Vial IV ONE (11:25)
[2024-01-20 11:39] LABS: BASOPHILS ABSOLUTE AUTO 0.05 K/mm3 (0.00-0.23); BASOPHILS PERCENT AUTO 1 % (0-2); EOSINOPHILS ABSOLUTE AUTO 0.01 K/mm3 (0.00-0.68); EOSINOPHILS PERCENT AUTO 0 % (0-6); Hematocrit 42.1 % (33.0-51.0); Hemoglobin 14.3 g/dL (11.5-16.0); IMMATURE GRAN ABSOLUTE AUTO 0.02 K/mm3 (0.00-0.10); IMMATURE GRAN PERCENT AUTO 0 % (0-1); LYMPHOCYTES ABSOLUTE AUTO 1.73 K/mm3 (0.84-5.20); LYMPHOCYTES PERCENT AUTO 18 % (21-46); MONOCYTES ABSOLUTE AUTO 0.74 K/mm3 (0.16-1.47); MONOCYTES PERCENT AUTO 8 % (4-13); Mean Corpuscular HGB 31.4 pg (26.0-34.0); Mean Corpuscular Volume 93 fL (80-100); NEUTROPHILS ABSOLUTE AUTO 7.26 K/mm3 (1.96-9.15); NEUTROPHILS PERCENT AUTO 74 % (41-73); Platelet Count 271 K/mm3 (150-400); RDW Coefficient Variation 12.1 % (11.7-14.2); RDW Standard Deviation 41.2 fL (35.1-46.3); Red Blood Cell Count 4.55 M/mm3 (3.80-5.20); White Blood Cell Count 9.81 K/mm3 (4.00-11.30)
[2024-01-20 11:55] LABS: Albumin, Blood 3.6 g/dL (3.4-5.0); Albumin/Globulin Ratio 0.9 (0.8-1.8); Bilirubin, Total 0.6 mg/dL (0.1-1.0); Bun/Creatinine Ratio 17.2 (12.0-20.0); Calcium, Blood 9.1 mg/dL (8.5-10.1); Creatinine, Blood 0.47 mg/dL (0.40-1.00); Potassium, Blood 3.4 mmol/L (3.5-5.5); Total Protein, Blood 7.6 g/dL (6.4-8.2)
[2024-01-20 12:34] LABS: Source, Urine Clean Catch
[2024-01-20 12:47] LABS: Bilirubin, Urine Neg (Neg); Blood, Urine Neg (Neg); Glucose Qualitative, Urine Neg (Neg); Ketones, Urine Neg (Neg); Leukocyte Esterase, Urine Neg (Neg); Nitrite, Urine Neg (Neg); Protein, Urine Neg (Neg); Urobilinogen, Urine NORM (Normal)
[2024-01-20 12:57] LABS: Appearance, Urine Clear (Clear); Color, Urine Yellow (P-Yellow)
[2024-01-20] MEDS ORDERED: HYDROmorphone HCl/Pf 1MG SYR IV ONE (15:15)
[2024-01-20 16:00] VITALS: BP 138/77
== END 2024-01-20 16:10 | disposition home or self-care (01) ==
LOC: ER 11:10
PROVIDERS: Physician Assistant
DX: M54.17 Radiculopathy, lumbosacral region (principal); M54.16 Radiculopathy, lumbar region; M54.50 Low back pain, unspecified; I10 Essential (primary) hypertension; K58.9 Irritable bowel syndrome, unspecified; E78.5 Hyperlipidemia, unspecified; K21.9 Gastro-esophageal reflux disease without esophagitis; Z87.891 Personal history of nicotine dependence; Z88.8 Allergy status to other drugs, medicaments and biological substances; Z79.899 Other long term (current) drug therapy
CPT/HCPCS: 74177; 80053; 81003; 85025; 96374-59; 96375; 99284-25; J1171; J1885; Q9967

== ENCOUNTER → 2024-02-24 | Outpatient (CLI) | payer OTHER ==
[2024-02-28 08:06] LABS: 6-ACETYLMORPHINE, URN, QUANT <10 ng/mL; CODEINE, URN, QUANT <20 ng/mL; HYDROCODONE, URN, QUANT <20 ng/mL; HYDROMORPHONE, URN, QUANT <20 ng/mL; MORPHINE, URN, QUANT <20 ng/mL; NORHYDROCODONE, URN, QUANT <20 ng/mL; NOROXYCODONE, URN, QUANT 2768 ng/mL; NOROXYMORPHONE, URN, QUANT 261 ng/mL; OXYCODONE, URN, QUANT 736 ng/mL; OXYMORPHONE, URN, QUANT <20 ng/mL
== END ==
LOC: LAB SHORT 18:20 → LAB 18:20
PROVIDERS: Family Medicine
DX: Z51.81 Encounter for therapeutic drug level monitoring (principal); Z79.899 Other long term (current) drug therapy
CPT/HCPCS: G0480

== ENCOUNTER → 2024-05-27 | Outpatient (CLI) | payer OTHER ==
[2024-05-27 14:38] LABS: BASOPHILS ABSOLUTE AUTO 0.02 K/mm3 (0.00-0.23); BASOPHILS PERCENT AUTO 0 % (0-2); EOSINOPHILS ABSOLUTE AUTO 0.07 K/mm3 (0.00-0.68); EOSINOPHILS PERCENT AUTO 2 % (0-6); Hematocrit 39.7 % (33.0-51.0); Hemoglobin 13.6 g/dL (11.5-16.0); IMMATURE GRAN ABSOLUTE AUTO 0.01 K/mm3 (0.00-0.10); IMMATURE GRAN PERCENT AUTO 0 % (0-1); LYMPHOCYTES ABSOLUTE AUTO 2.71 K/mm3 (0.84-5.20); LYMPHOCYTES PERCENT AUTO 56 % (21-46); MONOCYTES ABSOLUTE AUTO 0.49 K/mm3 (0.16-1.47); MONOCYTES PERCENT AUTO 10 % (4-13); Mean Corpuscular HGB Conc 34.3 g/dL (31.5-36.5); Mean Corpuscular Volume 88 fL (80-100); Mean Platelet Volume 9.1 fL (9.1-12.4); NEUTROPHILS ABSOLUTE AUTO 1.51 K/mm3 (1.96-9.15); NEUTROPHILS PERCENT AUTO 31 % (41-73); Platelet Count 246 K/mm3 (150-400); RDW Coefficient Variation 11.9 % (11.7-14.2); RDW Standard Deviation 37.9 fL (35.1-46.3); Red Blood Cell Count 4.53 M/mm3 (3.80-5.20); White Blood Cell Count 4.81 K/mm3 (4.00-11.30)
[2024-05-27 14:47] LABS: Albumin, Blood 3.9 g/dL (3.4-5.0); Albumin/Globulin Ratio 1.1 (0.8-1.8); Bilirubin, Total 0.3 mg/dL (0.1-1.0); Calcium, Blood 9.2 mg/dL (8.5-10.1); Creatinine, Blood 0.53 mg/dL (0.40-1.00); Globulin, Blood 3.4 g/dL (2.2-4.0); Magnesium, Blood 1.6 mg/dL (1.6-2.4); Phosphorus, Blood 3.6 mg/dL (2.5-4.9); Potassium, Blood 3.3 mmol/L (3.5-5.5); Total Protein, Blood 7.3 g/dL (6.4-8.2)
== END ==
LOC: LAB SHORT 14:31 → LAB 14:31
PROVIDERS: Family Medicine
DX: R00.1 Bradycardia, unspecified (principal)
CPT/HCPCS: 80053; 83735; 84100; 85025

== ENCOUNTER → 2024-09-15 | Outpatient (CLI) | payer OTHER ==
[2024-09-18 11:06] LABS: 6-ACETYLMORPHINE, URN, QUANT <10 ng/mL; CODEINE, URN, QUANT <20 ng/mL; HYDROCODONE, URN, QUANT <20 ng/mL; HYDROMORPHONE, URN, QUANT <20 ng/mL; MORPHINE, URN, QUANT <20 ng/mL; NORHYDROCODONE, URN, QUANT <20 ng/mL; NOROXYCODONE, URN, QUANT 3360 ng/mL; NOROXYMORPHONE, URN, QUANT 454 ng/mL; OXYCODONE, URN, QUANT 915 ng/mL; OXYMORPHONE, URN, QUANT 26 ng/mL
== END ==
LOC: LAB 14:54 → LAB SHORT 14:54
PROVIDERS: Family Medicine
DX: G89.4 Chronic pain syndrome (principal); Z79.899 Other long term (current) drug therapy
CPT/HCPCS: G0480

== ENCOUNTER → 2025-01-03 | Outpatient (CLI) | payer OTHER ==
[2025-01-07 08:00] LABS: 6-ACETYLMORPHINE, URN, QUANT <10 ng/mL; CODEINE, URN, QUANT <20 ng/mL; HYDROCODONE, URN, QUANT <20 ng/mL; HYDROMORPHONE, URN, QUANT <20 ng/mL; MORPHINE, URN, QUANT <20 ng/mL; NORHYDROCODONE, URN, QUANT <20 ng/mL; NOROXYCODONE, URN, QUANT 3768 ng/mL; NOROXYMORPHONE, URN, QUANT 421 ng/mL; OXYCODONE, URN, QUANT 841 ng/mL; OXYMORPHONE, URN, QUANT 31 ng/mL
== END ==
LOC: LAB SHORT 11:05 → LAB 11:05
PROVIDERS: Family Medicine
DX: Z51.81 Encounter for therapeutic drug level monitoring (principal); Z79.899 Other long term (current) drug therapy
CPT/HCPCS: G0480

== ENCOUNTER 2025-02-20 00:19 | Emergency (ER) | payer OTHER ==
[~2025-02-20] VITALS: Ht 157.5 cm; Wt 59.0 kg
[2025-02-20 01:01] LABS: BASOPHILS ABSOLUTE AUTO 0.05 K/mm3 (0.00-0.23); BASOPHILS PERCENT AUTO 1 % (0-2); EOSINOPHILS ABSOLUTE AUTO 0.10 K/mm3 (0.00-0.68); EOSINOPHILS PERCENT AUTO 1 % (0-6); Hematocrit 38.4 % (33.0-51.0); Hemoglobin 12.3 g/dL (11.5-16.0); IMMATURE GRAN ABSOLUTE AUTO 0.02 K/mm3 (0.00-0.10); IMMATURE GRAN PERCENT AUTO 0 % (0-1); LYMPHOCYTES ABSOLUTE AUTO 2.40 K/mm3 (0.84-5.20); LYMPHOCYTES PERCENT AUTO 32 % (21-46); MONOCYTES ABSOLUTE AUTO 0.56 K/mm3 (0.16-1.47); MONOCYTES PERCENT AUTO 8 % (4-13); Mean Corpuscular HGB Conc 32.0 g/dL (31.5-36.5); Mean Corpuscular Volume 89 fL (80-100); NEUTROPHILS ABSOLUTE AUTO 4.28 K/mm3 (1.96-9.15); NEUTROPHILS PERCENT AUTO 58 % (41-73); NRBC ABSOLUTE 0.00 K/mm3 (0.00-0.02); NRBC Auto 0.0 /100 WBC (0.0-0.2); Platelet Count 257 K/mm3 (150-400); RDW Coefficient Variation 14.7 % (11.7-14.2); RDW Standard Deviation 48.7 fL (35.1-46.3)
[2025-02-20 01:20] LABS: Alanine Aminotransfer (ALT/SGP 16.0 U/L (12-78); Albumin, Blood 3.7 g/dL (3.4-5.0); Albumin/Globulin Ratio 1.2 (0.8-1.8); Anion Gap 8.0 mmol/L (3-11); Aspartate Aminotrans (AST/SGOT 15.0 U/L (12-37); Bilirubin, Total 0.4 mg/dL (0.1-1.0); Blood Urea Nitrogen 11.0 mg/dL (8-24); CO2, Blood 27.0 mmol/L (21-32); Calcium, Blood 9.0 mg/dL (8.5-10.1); Chloride, Blood 108.0 mmol/L (98-108); Creatinine, Blood 0.44 mg/dL (0.40-1.00); Globulin, Blood 3.1 g/dL (2.2-4.0); Glucose, Blood 111.0 mg/dL (70-99); Potassium, Blood 3.8 mmol/L (3.5-5.5); Sodium, Blood 139.0 mmol/L (136-145); Total Protein, Blood 6.8 g/dL (6.4-8.2)
[2025-02-20 01:34] LABS: Source, Urine Clean Catch
[2025-02-20 01:41] LABS: Bilirubin, Urine Neg (Neg); Glucose Qualitative, Urine Neg (Neg); Ketones, Urine Neg (Neg); Leukocyte Esterase, Urine Neg (Neg); Protein, Urine Neg (Neg); Specific Gravity, Urine 1.010 (1.003-1.022); Urobilinogen, Urine NORM (Normal)
[2025-02-20 01:43] LABS: Color, Urine Yellow (P-Yellow)
[2025-02-20 01:45] VITALS: BP 151/84
[2025-02-20] MEDS ORDERED: OxyCODONE 5 mg/Acetamin 325 mg TABLET PO ONE (01:55)
== END 2025-02-20 02:15 | disposition home or self-care (01) ==
LOC: ER 00:19
PROVIDERS: Student in an Organized Health Care Education/Training Program
DX: I10 Essential (primary) hypertension (principal); R42 Dizziness and giddiness; E78.5 Hyperlipidemia, unspecified; K21.9 Gastro-esophageal reflux disease without esophagitis; Z87.891 Personal history of nicotine dependence; Z88.8 Allergy status to other drugs, medicaments and biological substances; Z79.899 Other long term (current) drug therapy
CPT/HCPCS: 80053; 81003; 85025; 93005; 93010; 99283-25; A9270